=== PATIENT | female | born 1985 | race African-American/Black ===

== ENCOUNTER 2018-06-26 06:35 | Day surgery (SDC) | payer SELFPAY ==
[2018-06-22 11:18] VITALS: BMI 23.6
[2018-06-26] MEDS ORDERED: GENTAMICIN SO4 80 MG/2 ML VIAL ONE ×2 (07:11→07:35)
[2018-06-26] MEDS ORDERED: LIDOCAINE 1%/EPI 1:100000 (20 ML MULTI DOSE VIAL) ONE (07:11)
[2018-06-26] MEDS ORDERED: ceFAZolin SODIUM 1 GM VIAL ONE ×2 (07:11→07:35)
[2018-06-26] MEDS ORDERED: BUPIVACAINE HCL/PF 2.5 MG/ML - 30 ML VIAL IJ ONE (07:11)
[2018-06-26] MEDS ORDERED: MIDAZOLAM HCL 2 MG/2 ML SINGLE DOSE VIAL ONE (08:08)
[2018-06-26] MEDS ORDERED: fentaNYL CITRATE 250 MCG/5 ML VIAL ONE (08:08)
[2018-06-26] MEDS ORDERED: PROPOFOL 20 ML ONE ×4 (08:08)
[2018-06-26] MEDS ORDERED: SUCCINYLCHOLINE CHLORIDE 200 MG/10 ML VIAL ONE (08:08)
[2018-06-26] MEDS ORDERED: HYDROmorphone HCL/PF 1 MG/ML AMP ONE (11:50)
[2018-06-26] MEDS ORDERED: oxyCODONE HCL 5 MG TABLET PO PRN ×2 (13:38)
[2018-06-26] MEDS ORDERED: ONDANSETRON 4 MG/2 ML VIAL IVPUSH PRN (13:38)
[2018-06-26] MEDS ORDERED: PROMETHAZINE HCL 25 MG/1 ML VIAL IVPUSH PRN (13:38)
[2018-06-26] MEDS ORDERED: ONDANSETRON 4 MG/2 ML VIAL IVPUSH ONE (13:47)
[2018-06-26] MEDS ORDERED: ONDANSETRON 4 MG/2 ML VIAL ONE (13:48)
[2018-06-26] MEDS ORDERED: oxyCODONE HCL 5 MG TABLET ONE (14:38)
[2018-06-26 15:00] VITALS: TEMP 97.3
[2018-06-26] MEDS ORDERED: PROMETHAZINE HCL 25 MG/1 ML VIAL ONE (15:11)
[2018-06-26 17:40] VITALS: PULSE 75
[2018-06-26 17:46] VITALS: BP 124/76
== END 2018-06-26 17:00 | disposition home or self-care (01) ==
LOC: FASU 06:35
PROVIDERS: ATTEND Surgery
PROC: 0H0V0JZ Alteration of Bilateral Breast with Synthetic Substitute, Open Approach (ICD-10-PCS; principal; 2018-06-26 09:47)
DX: Z41.1 Encounter for cosmetic surgery (principal)
CPT/HCPCS: 84703; 94760